=== PATIENT | female | born 1985 | race Caucasian/White ===

== ENCOUNTER 2022-07-22 05:58 | Day surgery (SDC) | payer BC, OTHER ==
[~2022-07-22 05:58] MED LIST: Dextrose 5%-0.45% NaCl 1,000 ML IV SCH; Sodium Chloride 0.9% 10 ML Syringe FLUSH PRN; Sodium Chloride 0.9% 10 ML Syringe FLUSH SCH
[2022-07-22] MEDS ORDERED: Midazolam 1 MG/ML 2 ML SDV IV ONE ×7 (05:59→07:17)
[2022-07-22] MEDS ORDERED: fentaNYL 100 MCG/2 ML SDV IV ONE ×4 (05:59→07:20)
[2022-07-22] MEDS ORDERED: Dextrose 5%-0.45% NaCl 1,000 ML IV SCH (06:30)
[2022-07-22] MEDS ORDERED: fentaNYL 100 MCG/2 ML SDV ONE (07:01)
[2022-07-22] MEDS ORDERED: Midazolam 1 MG/ML 2 ML SDV ONE (07:01)
[2022-07-22 11:22] VITALS: BP 136/77; PULSE 67
== END 2022-07-22 09:05 | disposition home or self-care (01) ==
LOC: DL.ENDO 05:58
PROVIDERS: ATTEND Internal Medicine Gastroenterology
DX: K64.4 Residual hemorrhoidal skin tags (principal); R53.81 Other malaise; E66.09 Other obesity due to excess calories; Z90.49 Acquired absence of other specified parts of digestive tract; Z80.0 Family history of malignant neoplasm of digestive organs
CPT/HCPCS: J2250; J3010; J7042